=== PATIENT | female | born 1980 | race Two or more races ===

== ENCOUNTER 2019-03-31 09:24 | Emergency (ER) | payer SELFPAY ==
[~2019-03-31] VITALS: Ht 167.6 cm; Wt 91.0 kg
[2019-03-31] MEDS ORDERED: ACETAMINOPHEN 325MG TABLET PO ONE (11:00)
[2019-03-31 14:35] VITALS: BP 119/77
[2019-03-31] MEDS ORDERED: ONDANSETRON 4MG ODT PO ONE (15:00)
== END 2019-03-31 14:36 | disposition home or self-care (01) ==
LOC: ER 09:24
DX: S00.03XA Contusion of scalp, initial encounter (principal); M54.2 Cervicalgia; W17.89XA Other fall from one level to another, initial encounter; Y93.89 Activity, other specified; Y92.812 Truck as the place of occurrence of the external cause
CPT/HCPCS: 70450; 72125; 99284; Q0162

== ENCOUNTER 2019-05-05 19:04 | Emergency (ER) | payer SELFPAY ==
[~2019-05-05] VITALS: Ht 162.6 cm; Wt 109.0 kg
[2019-05-05] MEDS ORDERED: DIPHENHYDRAMINE 50MG/ML VIAL IV ONE (21:15)
[2019-05-05] MEDS ORDERED: SODIUM CHLORIDE 0.9% 500 ML IV ONE ×2 (21:15)
[2019-05-05] MEDS ORDERED: METOCLOPRAMIDE HCL 10MG/2ML VIAL IV ONE (21:15)
[2019-05-05 22:52] VITALS: BP 122/79
== END 2019-05-05 22:53 | disposition home or self-care (01) ==
LOC: ER 19:04
DX: R51 Headache (principal); Z91.81 History of falling; Z98.890 Other specified postprocedural states
CPT/HCPCS: 96374; 96375; 99283; J1200; J2765; J7040; Z7610